=== PATIENT | male | born 1965 | race Caucasian/White ===

== ENCOUNTER → 2017-10-24 | Outpatient (CLI) | payer MEDICARE, MEDICAID ==
[~2017-10-24] MED LIST: ABILIF5PT PO; ALBU8.5H IH; AMOX125T10 PO; ARIP15TA9 PO; ARIP20TA11 PO; ATOR40TA24 PO; BUDE10.25 IH; DIA2 PO; DIA5 PO; DOCU-299 PO; FLUO-177 PO; FLUT1DIS27 IH; IMIP50TA PO; IMIP50TA33 PO; LORA-799 PO; LORA-941 PO; METO25TA91 PO; NAPR220C12 PO; OXYB5TAB86 PO; SIMV-1 PO; TOLN10SO3 TOP; VIT1CAPS39 PO; [UNRECOGNIZED DRUG - CODE] INH; [UNRECOGNIZED DRUG - CODE] PO; [UNRECOGNIZED DRUG - OTHER] PO
--- NOTE | 2017-10-24 12:10 | RADIOLOGY IMAGING REPORT ---
FACILITY: [facility] PATIENT NAME: Syd Hodges : 1965 MR: [id number] V: [id number] EXAM DATE: ORDERING PHYSICIAN: CHELSEY SANTANA TECHNOLOGIST: Location: [facility] Patient: Syd Hodges : 1965 Visit/Account:[id number] Date of Sevice: 10/24/2017 Exam type: SHOULDER MIN 2 VIEWS LEFT History: Following to left shoulder this morning Comparison: None. Findings: Studies limited due to only two views. There appears to be an irregular lucency along the superolate ral aspect of the left humeral head. There is an additional oblique lucency seen in the proximal met aphysis of the left humerus on the oblique view. Fractures cannot be totally excluded. Full left sh oulder series is recommended IMPRESSION: 1. Limited study due to only two views submitted. A full shoulder series recommended as fractures c annot be excluded as described above Report Dictated By: Albertina Chiang MD at 10/24/2017 12:04 PM Report E-Signed By: Albertina Chiang MD at 10/24/2017 12:06 PM [email or web address]
== END ==
LOC: RAD 10:40
PROVIDERS: ATTEND Family Medicine
DX: M25.512 Pain in left shoulder (principal)

== ENCOUNTER → 2017-10-25 | Outpatient (CLI) | payer MEDICARE, MEDICAID ==
--- NOTE | 2017-10-25 12:24 | RADIOLOGY IMAGING REPORT ---
FACILITY: [facility] [place] PATIENT NAME: Syd Hodges : 1965 MR: [id number] V: [id number] EXAM DATE: ORDERING PHYSICIAN: CHELSEY SANTANA TECHNOLOGIST: Location: [facility] Patient: Syd Hodges : 1965 Visit/Account:[id number] Date of Sevice: 10/25/2017 Left shoulder, 3 views. HISTORY: Fell, left shoulder pain. COMPARISON: 10/24/2017. Mild trabecular irregularities are present in the lateral aspect of the humeral head, unchanged. No d iscrete fracture line is identified. The glenohumeral joint is partially obscured due to positioning. The acromioclavicular and the glenohumeral joints are otherwise unremarkable. The subacromial space is unremarkable. IMPRESSION: Negative for acute bony abnormality. If a fracture is still suspected clinically, follow-up radiogra phs might be considered in one to 2 weeks. Otherwise negative. Report Dictated By: Santy Alcaraz MD at 10/25/2017 12:13 PM Report E-Signed By: Santy Alcaraz MD at 10/25/2017 12:19 PM WSN:[id number]
== END ==
LOC: RAD 10:47
PROVIDERS: ATTEND Family Medicine
DX: M25.512 Pain in left shoulder (principal)

== ENCOUNTER → 2017-11-21 | Outpatient (CLI) | payer MEDICARE, MEDICAID | LOC: LAB 14:56 | PROVIDERS: ATTEND Psychiatry & Neurology Psychiatry | DX: Z51.81 Encounter for therapeutic drug level monitoring (principal); Z79.899 Other long term (current) drug therapy; Q99.2 Fragile X chromosome | CPT/HCPCS: 36415; 80178; 82040; 82247; 82310; 82374; 82435; 82565; 82947; 84075; 84132; 84155; 84295; 84443; 84450; 84460; 84520; 85027 ==

== ENCOUNTER 2018-03-09 09:40 | Outpatient (RCR) | payer MEDICARE, MEDICAID ==
[~2018-03-09] VITALS: Ht 188 cm; Wt 112.9 kg
--- NOTE | 2018-03-09 12:33 | Medical Nutrition Therapy ---
Nutrition Anthropometrics Height (Inches): 74 Weight (Pounds): 252 (with shoes but no vest) Rafael Nutrition Score: Rafael Nutrition Risk Score: Dietary Referral Nutrition Risk Factors: Nutrition Risk Comment: Nutrition/Food History Breakfast: 2 eggs & 2 toast or 2 B[place] toast Lunch: sandwiches, leftover, hot dogs Dinner: meat, starch, veg or plateful of spagette Snacks: fruit, candy pretzels cookie or will eat all leftovers intended for lunch Nutritional Education Nutrition Education Topic: Weight Loss Diet Learning Barriers: Cognitive Learning Readiness: Little Interest Response to Teaching: Reinforcement needed Teaching Recipient: Patient, Primary Caregiver Nutrition Counseling: [facility] client with staff attended session. Pt asked if he was interested in making diet changes to help with wt loss and he said yes. However when pt was encouraged to add exercise to his daily routine he refuse. Pt lives independently but staff fixes meals. Reviewed plate method and made some suggestions for meals and snacks. Provided handout on " One Meal at a Time" and reviewed with pt and staff for meal ideas. Staff trys to provide healthy meals. Discussed portion size and recommned using portion control plate for measuring and then put on regular plate to ensure pt dignity. Recommended pt have 3-4 oz meat, 1/2 cup starch, 1/2c fruit and unlimited veg for meal. Recommend change to diet bread to allow pt to cont sandwich at lunchtiime. Encouraged pt to try salads at fast food restaurante. Snacks are currently a problem. Disucssed healthier snacks keep on hand, prepared veg sticks, diet jello, cottage cheese, dill mack. Discussed exercise again but pt was firm about not adding that at this time. Follow-up scheduled 03/30 at 1:00. Nutrition Monitoring & Eval RD Patient Assessment Time: [address] Assessment Type: RD Education Nutritional Comment: Ptovide 60 minute MNT with dx obesity BMI 36.7 Copies To Copies to: DEMOND CASAS MD, BETH March 09, 2018 12:33
--- NOTE | 2018-03-30 11:22 | Medical Nutrition Therapy ---
Nutrition Anthropometrics Height (Inches): 74 Weight (Pounds): 249 (with shoes but no [id number]) Rafael Nutrition Score: Rafael Nutrition Risk Score: Dietary Referral Nutrition Risk Factors: Nutrition Risk Comment: Nutritional Education Nutrition Education Topic: Weight Loss Diet Learning Barriers: Cognitive Learning Readiness: Little Interest Teaching Methods: Discussion Response to Teaching: Verbalize understanding (managed care coordinator verbalized understanding, pt verbalized agreement) Teaching Recipient: Patient, Primary Caregiver Nutrition Counseling: Pt and Vicenta (caregiver) attended schedule. Pt has lost 2.5#. Vicenta stated pt was eating veg as snacks- however was eating several days portions in 1 day. Recommended only cutting up and portioning out 1 day at a time. Vicenta stated that option was available. Cautioned pt about eating a 2# bag of carrots in one day as it can turn him orange. Pt states likes pretzels, encouraged pt to try popcorn instead. Recommend buying individual size bags of microwave popcorn or skinny popcorn. Pt has been eating more salads, diet jello and cottage cheese. pt will come back April 27:00 at 9:30 for f/u. Nutrition Monitoring & Eval RD Patient Assessment Time: [address] Assessment Type: RD Education Nutritional Comment: Ptovide 30 minute MNT with dx obesity BMI 36.7 Copies To Copies to: DEMOND CASAS MD, BETH Jun 14, 2018 11:22
== END 2018-04-13 ==
LOC: DIET 09:40
PROVIDERS: ATTEND Psychiatry & Neurology Psychiatry
DX: Z71.3 Dietary counseling and surveillance (principal); R63.5 Abnormal weight gain; Q99.2 Fragile X chromosome; Z68.36 Body mass index [BMI] 36.0-36.9, adult
CPT/HCPCS: 97802; 97803